=== PATIENT | male | born 1965 | race Caucasian/White ===

== ENCOUNTER 2017-03-29 11:02 | Inpatient (IN) | payer OTHER ==
--- NOTE | ~2017-03-29 | HP ---
Unit #: [id number] #: [id number] Patient: RAFA MCGEE [id number] [place] [address] [id number] MR#: [id number] NAME: RAFA MCGEE ROOM: P184 Age: 51 Sex: M Admission Date: 03/29/2017 : 1965 Attending Physician: Effie Izquierdo M.D. Admitting Physician: Effie Izquierdo M.D. Primary Care Physician: Generic Doctor Not In System HISTORY AND PHYSICAL HISTORY OF PRESENT ILLNESS Rafa is a 51-year-old male admitted on 03/29/2017 [facility] for detox from alcohol. PAST MEDICAL HISTORY Obesity, hypertension, GERD. PAST SURGICAL HISTORY None. SOCIAL HISTORY Smokes a third pack of cigarettes daily. Drinks a half gallon of alcohol daily. No illegal drug use. Currently single and living with his friend. FAMILY HISTORY Noncontributory. REVIEW OF SYSTEMS CONSTITUTIONAL: No fever or chills. HEENT: Denies any sore throat, ear pain or runny nose. CARDIOVASCULAR: Denies chest pain, irregular heart rhythm or palpitations. CHEST: Denies shortness of breath or cough. No hemoptysis. GASTROINTESTINAL: Denies nausea, vomiting, diarrhea or chronic constipation. ENDOCRINE: Denies history of increased thirst or urination. No recent significant weight loss or gain. GENITOURINARY: Denies dysuria, frequency, or hematuria. SKIN: Denies any rashes. HEMATOLOGIC: Denies history of increased bleeding or bruising. MUSCULOSKELETAL: Denies any hot, swollen joints. No generalized muscle pain. NEUROLOGIC: Denies problems with vision or speech. No frequent, severe headaches. No numbness, tingling or weakness in any extremities. Denies loss of bladder or bowel control. CURRENT MEDICATIONS 1. Atarax 2. Paxil 3. Prilosec 4. Protonix ALLERGIES No known drug allergies. Unit #: [id number] #: [id number] Patient: RAFA MCGEE PHYSICAL EXAMINATION GENERAL: Alert, oriented, in no acute distress. VITAL SIGNS: Blood pressure 160/93, heart rate 81, respirations 16, temperature 98.5. HEIGHT: 6 foot 2 inches. WEIGHT: 265 pounds. SKIN: Warm and dry without rash or lesion. HEENT: Normocephalic. TMs not viewed. Oral and nasal passages clear. Conjunctivae clear. PERRLA. EOMs intact. NECK: Supple without lymphadenopathy or thyromegaly. HEART: Regular rate and rhythm without murmur. LUNGS: Clear. ABDOMEN: Soft, nontender, without masses or hepatosplenomegaly. : Not done. EXTREMITIES: No evidence of cyanosis, clubbing or edema. Moves all without focal deficit. NEUROLOGICAL: Grossly within normal limits. Cranial Nerves: II: Visual trejo are intact. III, IV AND : Extraocular movements are intact. Pupils are equal, round and reactive to light. V: Facial sensation is grossly normal. VII: Facial movements and expression are normal. VIII: Auditory acuity grossly intact. IX, X: Uvula is midline. Phonation is normal. XI: Patient shrugs shoulders and turns head normally. XII: Tongue protrudes in the midline. Sensory and Motor Function: Sensory and motor sensation is grossly normal. Motor: moves all extremities well. Coordination: Gait is normal. Deep Tendon Reflexes: Intact. IMPRESSION Psychiatric admission. RECOMMENDATIONS Psychiatric, per psychiatrist. MEDICAL: I see no contraindications to participating in facility's activities. MEDICAL PROGNOSIS Good. MEDICAL CONDITION Stable. Dictated by... Elliott Abraham/clark TD: 03/29/2017 20:00 JOB #: [id number] Unit #: [id number] #: [id number] Patient: RAFA MCGEE HISTORY AND PHYSICAL Page 1 of 1 X AMADEO CASTRO APRN X HISTORY AND PHYSICAL
--- NOTE | ~2017-03-29 | PN ---
Unit #: [id number] #: [id number] Patient: RAFA MCGEE [id number] [facility] [address] [place] [address] [id number] I MR#: [id number] NAME: RAFA MCGEE ROOM: 84 Age: 51 Sex: M Admission Date: 03/29/2017 : 1965 Attending Physician: Effie Izquierdo M.D. Admitting Physician: Effie Izquierdo M.D. Primary Care Physician: Tera Doctor Not In System [facility] PROGRESS NOTES DATE March 30, 2017 DISCUSSION Mr. Mcgee is a 51-year-old male, who was seen today and chart was reviewed and the case was discussed with the staff. He has been anxious, withdrawn, and depressed and rather seclusive to himself. Meanwhile, he has been cooperative with the treatment recommendations and has been taking the medications and tolerating them fairly well with no reported side effects. MENTAL STATUS EXAMINATION Middle-aged white male, who was casually dressed with fair personal hygiene and appears to be in slight distress and discomfort. He was awake and alert on interaction with intact orientation. His mood is anxious and depressed with a congruent affect. He reports having suicidal ideations but denies any homicidal ideations. His insight and judgment remain slightly impaired. TREATMENT PLAN 1. We will continue him on his current medications and treatment protocol, and will monitor his response to the medications, and make further adjustments as needed. 2. We will continue to followup. Dictated by... Spencer Gautam/nina TD: 03/31/2017 08:38 JOB #: [id number] Unit #: [id number] #: [id number] Patient: RAFA MCGEE PROGRESS NOTES Page 1 of 1 X Effie Izquierdo MD PROGRESS NOTE
--- NOTE | ~2017-03-29 | PN ---
Unit #: [id number] #: [id number] Patient: RAFA MCGEE [id number] [facility] [address] [place] [address] [id number] MR#: [id number] NAME: RAFA MCGEE ROOM: P184 Age: 51 Sex: M Admission Date: 03/29/2017 : 1965 Attending Physician: Effie Izquierdo M.D. Admitting Physician: Effie Izquierdo M.D. Primary Care Physician: Tera Doctor Not In System [facility] PROGRESS NOTES DATE 03/31/2017 DISCUSSION Mr. Mcgee is a 51-year-old male who was seen today and chart was reviewed and case was discussed with the staff. He has been anxious, withdrawn and distress and discomfort and appears to going through detox though has not shown any agitation or aggression. Meanwhile, he has been taking medications and tolerating them fairly well with no reported side effects. MENTAL STATUS EXAM Middle-aged white male who was casually dressed with fair personal hygiene, appears to be in no acute distress or discomfort. He was awake and alert with intake orientation. His mood was anxious with congruent affect. He denies any suicidal or homicidal ideation. His insight and judgement remains slightly impaired. TREATMENT PLAN 1. We will continue him on his current medications and treatment protocol. We will monitor his response to the medication and make further adjustments as needed. 2. We will continue to follow up. Dictated by... Spencer Gautam/clark TD: 04/01/2017 04:46 JOB #: [id number] [facility] PROGRESS NOTES Page 1 of 1 X Effie Izquierdo MD PROGRESS NOTE
--- NOTE | ~2017-03-29 | PN ---
Unit #: [id number] #: [id number] Patient: RAFA MCGEE [id number] [facility] [address] [place] [address] [id number] I MR#: [id number] NAME: RAFA MCGEE ROOM: 84 Age: 51 Sex: M Admission Date: 03/29/2017 : 1965 Attending Physician: Effie Izquierdo M.D. Admitting Physician: Effie Izquierdo M.D. Primary Care Physician: Generic Doctor Not In System [facility] PROGRESS NOTES DATE April 02, 2017 DISCUSSION Mr. Mcgee is a 51-year-old white male, who was seen today and chart was reviewed and the case was discussed with the staff. He remains anxious, withdrawn, and in distress and discomfort and was seclusive to himself and once again reports that he is not feeling much better and was uncomfortable. Meanwhile, he has been taking the medications and tolerating them fairly well with no reported side effects. MENTAL STATUS EXAMINATION Middle-aged white male, who was casually dressed with fair personal hygiene and appears to be in no acute distress or discomfort. He was awake and alert on interaction with intact orientation. His mood is anxious with a congruent affect. He denies any suicidal or homicidal ideations. His insight and judgment remain slightly impaired. TREATMENT PLAN We will continue him on his current medications and treatment protocol, and will monitor his response. Dictated by... Spencer Gautam/nina TD: 04/02/2017 08:11 JOB #: [id number] Unit #: [id number] #: [id number] Patient: RAFA MCGEE PROGRESS NOTES Page 1 of 1 X Effie Izquierdo MD X PROGRESS NOTE
--- NOTE | ~2017-03-29 | PN ---
Unit #: [id number] #: [id number] Patient: RAFA MCGEE [id number] [facility] [address] [place] [address] [id number] I MR#: [id number] NAME: RAFA MCGEE ROOM: 84 Age: 51 Sex: M Admission Date: 03/29/2017 : 1965 Attending Physician: Effie Izquierdo M.D. Admitting Physician: Effie Izquierdo M.D. Primary Care Physician: Tera Doctor Not In System [facility] PROGRESS NOTES DATE 04/01/2017 DISCUSSION Mr. Mcgee is a 51-year-old white male with substance abuse and mood disorder who was seen today and chart was reviewed and case was discussed with the staff. He remains anxious, withdrawn, depressed and rather seclusive to himself. Meanwhile, he has been cooperative with treatment recommendations and has been taking medications and tolerating them fairly well with no reported side effects. MENTAL STATUS EXAMINATION Middle-aged white male who was casually dressed with marginal personal hygiene and appears to be in distress and discomfort. He was awake and alert on interaction with intact orientation. His mood was anxious with congruent affect. His speech is slow and restricted in content. He denies any suicidal or homicidal ideations and also denies any auditory or visual hallucinations. His insight and judgement remains slightly impaired. TREATMENT PLAN 1. Will continue his current medications and treatment protocol and will monitor his response to the medications and make further adjustments as needed. 2. Will continue to follow up. Dictated by... Spencer Gautam/sakina TD: 04/01/2017 16:09 JOB #: [id number] Unit #: [id number] #: [id number] Patient: RAFA MCGEE PROGRESS NOTES Page 1 of 1 X Effie Izquierdo MD X PROGRESS NOTE
--- NOTE | ~2017-03-29 | PA ---
Unit #: [id number] #: [id number] Patient: RAFA MCGEE [id number] [facility] [address] [place] [address] [id number] I MR#: [id number] NAME: RAFA MCGEE ROOM: P184 Age: 51 Sex: M Admission Date: 03/29/2017 : 1965 Date of Assessment: 03/29/2017 Attending Physician: Effie Izquierdo M.D. Admitting Physician: Effie Izquierdo M.D. Primary Care Physician: Generic Doctor Not In System PSYCHIATRIC ASSESSMENT DATE OF SERVICE 03/29/2017. IDENTIFYING DATA Mr. Mcgee is a 51-year-old single, white male who is a resident of [place], [place] and was transferred to us from [facility] at [facility] where he was brought in with a blood alcohol level of 0.382. CHIEF COMPLAINT Suicidal ideation and "I want to stop drinking". HISTORY OF PRESENT ILLNESS Mr. Mcgee is a 51-year-old white male with a history of alcohol dependence, who was brought to the [facility] for suicidal ideations, severe alcohol use, and well extremely intoxicated upon presentation and was given p.r.n. medications to help with withdrawal symptoms and he was endorsing suicidal ideation and made statements that he wanted to stop drinking and has been having exhibition of his depressive symptoms for the past 4 months with loss of job and multiple triggers and stressors leading to increase in his alcohol consumption stating that he has been drinking half a gallon a day and had recently completed 2 weeks of outpatient treatment at [facility], and was unable to maintain sobriety and does endorse feelings of hopelessness and helplessness, and suicidal ideation and was seen to be danger to self and others and as such, recommendation for inpatient level of care was made and the patient was transferred to us. SUBSTANCE ABUSE HISTORY The patient has long history of alcohol dependence stating that he has been drinking since he was 17 years old and currently has been drinking half a gallon a day and denies any other drug abuse. PAST PSYCHIATRIC HISTORY The patient has had history of outpatient psychiatric treatment at the [facility] as well as inpatient treatment at [facility] and [facility] and review of the medical records indicate that he has been diagnosed and treated for mood disorder and is currently supposed to be on Zoloft, but it is not clear if he has been compliant with the medication. PAST MEDICAL HISTORY The patient's medical history is significant for gastroesophageal reflux disease. Unit #: [id number] #: [id number] Patient: RAFA MCGEE ALLERGIES No known medication allergies. PERSONAL AND SOCIAL HISTORY A 51-year-old white male who reports that he is single and lives by himself, and has poor social support system. MENTAL STATUS EXAMINATION Middle-aged white male who was casually dressed with fair personal hygiene, appears to be in no acute distress or discomfort. He was awake and alert on interaction with intact orientation to time, place, and person. His mood was anxious and depressed with a congruent affect. His speech was slow and restricted in content. His thought processes were disorganized with some looseness of associations and suicidal ideations. His insight and judgment remain significantly impaired. DIAGNOSTIC IMPRESSION Psychiatric: Alcohol dependence, moderate and acute withdrawals; major depressive disorder, recurrent, moderate, without psychotic features. Medical: Gastroesophageal reflux disease. Stressors: Moderate psychosocial stressors. TREATMENT PLAN 1. The patient has presented with a history of mood disorder and substance abuse, and has been decompensating and will need inpatient hospitalization for detoxification, safety, and stabilization. We will start him on detox protocol. We will closely monitor for any worsening withdrawal symptoms. 2. Supportive therapy was provided to the patient. 3. Safe, structured, and nourishing environment will be provided. ESTIMATED LENGTH OF STAY 5 to 7 days. ABILITY TO HELP SELF Limited. WILLINGNESS TO HELP SELF The patient appears to be willing to help self. STRENGTHS 1. Communicative. 2. Cooperative. PROBLEMS 1. Chronic dysphoric symptoms. 2. Chronic chemical dependency. 3. Poor social support system. DISCHARGE CRITERIA This will be contingent upon the patient's ability to show resolution of his depression and anxiety, and his ability to stay safe and sober, particularly after discharge from the hospital. Dictated by... Unit #: [id number] #: [id number] Patient: RFAA MCGEE Spencer Gautam/fei TD: 03/30/2017 12:09 JOB #: [id number] PSYCHIATRIC ASSESSMENT Page 1 of 1 X Effie Izquierdo MD PSYCHIATRIC ASSESSMENT
--- NOTE | ~2017-03-29 | DS ---
Unit #: [id number] #: [id number] Patient: RAFA MCGEE [id number] [facility] [address] [place] [address] [id number] I MR#: [id number] NAME: RAFA MCGEE ROOM: P184 Age: 51 Sex: M Admission Date: 03/29/2017 : 1965 Discharge Date: 04/03/2017 Attending Physician: Effie Izquierdo M.D. Primary Care Physician: Generic Doctor Not In System DISCHARGE SUMMARY IDENTIFYING DATA Mr. Mcgee is a 51-year-old single white male, who is a resident of [place], [place], and was transferred to us from Emergency Psychiatric Services at [facility]. DISCHARGE DIAGNOSES Psychiatric: Alcohol dependence, moderate and acute withdrawals; major depressive disorder, recurrent, moderate, without psychotic features. Medical: Gastroesophageal reflux disease. Stressors: Moderate psychosocial stressors. HISTORY OF PRESENT ILLNESS Please see initial psychiatric evaluation for details. PAST PSYCHIATRIC HISTORY Please see initial psychiatric evaluation for details. PAST MEDICAL HISTORY Please see initial psychiatric evaluation for details. HOSPITAL COURSE The patient was [facility] and was oriented to the hospital environment. Routine p.r.n. medications were initiated, and he was started back on his home medications and alcohol detox protocol was initiated and he was closely monitored. He was rather anxious, restless, and uncomfortable, and had complicated withdrawals, but was wanting to go to long-term rehab level of care and social science teacher were able to get him accepted at [facility], and as such, it was decided that he will be transferred to that facility direct from here and will recommend ongoing outpatient psychiatric treatment. DISCHARGE MEDICATIONS Paxil 10 mg a day for depression. DISCHARGE CONDITION Stable. PROGNOSIS Fair. Dictated by... Unit #: [id number] #: [id number] Patient: RAFA MCGEE Spencer Gautam/fei TD: 04/03/2017 06:31 JOB #: [id number] DISCHARGE SUMMARY Page 1 of 1 X Effie Izquierdo MD X DISCHARGE SUMMARY
--- NOTE | ~2017-03-29 | CO ---
Unit #: [id number] #: [id number] Patient: RAFA MCGEE [id number] [facility] [address] [place] [address] [id number] MR#: [id number] NAME: RAFA MCGEE ROOM: 84 Age: 51 Sex: M Admission Date: 03/29/2017 : 1965 Attending Physician: Effie Izquierdo M.D. Primary Care Physician: Tera Doctor Not In System Consultation Date: 03/31/2017 CONSULTATION REPORT SUBJECTIVE Rafa is a 51-year-old with history of high blood pressure and abuse of alcohol. He is admitted on no blood pressure medications. Pressures have remained high despite detox medications. We have been asked to assess and treat. Blood pressures have been running 147/94, 155/104, 180/120; heart rate 76, 66, 70. ASSESSMENT High blood pressure, not controlled. PLAN Start Norvasc 5 mg one p.o. daily. Continue to monitor blood pressures per detox protocol. The patient will need to follow up with PCP. Dictated by... Tiff Adame P.A.-C. for Spencer Gong/fei TD: 04/02/2017 01:19 JOB #: [id number] CONSULTATION REPORT Page 1 of 1 X Tiff Adame CONSULTATION REPORT
[2017-03-31 12:37] LABS: BASOPHIL% 1.2 % (0-2.5); EOSINOPHIL# 0.1 X10e3 (0-0.7); EOSINOPHIL% 1.5 % (0.0-7.0); HEMATOCRIT 39.9 % (38.0-50.0); HEMOGLOBIN 13.2 gm/dL (13.0-16.0); LYMPHOCYTE# 0.7 X10e3 (1.0-3.5); LYMPHOCYTE% 21.2 % (17.0-45.0); MEAN CELL VOLUME 95.9 FL (83-96); MEAN CORPUSCULAR HEMOGLOBIN 31.6 PG (28-34); MEAN PLATELET VOLUME 8.9 FL (6.5-11.5); MONOCYTE# 0.3 X10e3 (0-1.0); MONOCYTE% 8.5 % (3.0-12.0); NEUTROPHIL# 2.3 X10e3 (1.5-7.1); NEUTROPHIL% 67.6 % (40-75); RED BLOOD COUNT 4.16 X10e (3.90-5.60); RED CELL DISTRIBUTION WIDTH 14.7 % (11.0-15.5); WHITE BLOOD COUNT 3.4 X10e3 (4.0-10.5)
[2017-03-31 12:45] LABS: ALBUMIN SERUM 4.1 g/dL (3.5-5.0); BILIRUBIN,TOTAL 1.3 mg/dL (0.2-2.0); GLOM FILT RATE Estimated 86.8 mL/min (>60); POTASSIUM 4.2 mmol/L (3.5-5.1); PROTEIN TOTAL SERUM 7.1 g/dL (6.0-8.3)
[2017-03-31 12:54] LABS: URINE APPEARANCE CLEAR; URINE BILIRUBIN NEG (NEG); URINE BLOOD NEG (NEG); URINE COLOR DK YELLOW; URINE GLUCOSE NEG (NEG); URINE KETONE NEG (NEG); URINE LEUKOCYTE ESTERASE NEG (NEG); URINE NITRATE NEG (NEG); URINE PH 6.5 (5-8); URINE PROTEIN NEG (NEG); URINE SPECIFIC GRAVITY 1.017 (1.003-1.035)
[2017-03-31 13:10] LABS: AMPHETAMINE NEG (NEG); BARBITURATES NEG (NEG); BENZODIAZEPINES POS (NEG); COCAINE NEG (NEG); MARIJUANA NEG (NEG); OPIATES NEG (NEG); TRICYCLIC ANTIDEPRESSANTS NEG (NEG); U METHADONE NEG (NEG)
[2017-03-31 13:12] LABS: DIFF IND YES; PLATELET COUNT 79 X10e3 (140-420)
[2017-03-31 13:15] LABS: ANISOCYTOSIS SL; PLATELET ESTIMATE DECREASED (NORMAL)
== END 2017-04-03 10:15 | DRG 897 ==
LOC: P1E 11:02
PROVIDERS: Psychiatry & Neurology Psychiatry
PROC: HZ2ZZZZ Detoxification Services for Substance Abuse Treatment (ICD-10-PCS; principal; 2017-03-29)
DX: F10.239 Alcohol dependence with withdrawal, unspecified (principal); R45.851 Suicidal ideations; F33.1 Major depressive disorder, recurrent, moderate; K21.9 Gastro-esophageal reflux disease without esophagitis; Y90.9 Presence of alcohol in blood, level not specified; F29 Unspecified psychosis not due to a substance or known physiological condition; I10 Essential (primary) hypertension
CPT/HCPCS: 80053; 80307; 81003; 85025; 86592